=== PATIENT | male | born 1950 | race Caucasian/White ===

== ENCOUNTER 2023-07-31 06:50 | Day surgery (SDC) | payer MEDICARE, BC ==
[~2023-07-31 06:50] MED LIST: Lactated Ringers 1,000 ML IV SCH; Lactated Ringers 1,000 ML ONE; Midazolam 1 MG/ML 2 ML SDV ONE; Morphine 8 MG, EPINEPHrine 0.3 MG, Cefuroxime 750 MG, Ketorolac 30 MG, Sodium Chloride ... PRN; Propofol 200 MG/20 ML SDV ONE; Sodium Chloride 0.9% 10 ML Syringe FLUSH PRN; Sodium Chloride 0.9% 10 ML Syringe FLUSH SCH; Tranexamic Acid 1,000 MG/10 ML Vial ONE; Vancomycin 1 GM SDV ONE; ceFAZolin 2 GM Vial ONE; fentaNYL 100 MCG/2 ML SDV ONE
[2023-07-31] MEDS ORDERED: Tranexamic Acid 1,000 MG/10 ML Vial ONE (06:57)
[2023-07-31] MEDS ORDERED: oxyCODONE ER 10 MG TAB.ER PO SCH (07:00)
[2023-07-31] MEDS ORDERED: Acetaminophen 325 MG Tab PO SCH (07:00)
[2023-07-31] MEDS ORDERED: Pregabalin 25 MG Cap PO SCH (07:00)
[2023-07-31] MEDS ORDERED: Ropivacaine 0.5% 5 MG/ML 30 ML SDV ONE (07:06)
[2023-07-31] MEDS ORDERED: EPINEPHrine 1 MG/ML SDV ONE (07:06)
[2023-07-31] MEDS ORDERED: Dexmedetomidine 200 MCG/2 ML SDV ONE (07:06)
[2023-07-31] MEDS ORDERED: Ondansetron 4 MG/2 ML SDV IVPUSH PRN (08:29)
[2023-07-31] MEDS ORDERED: fentaNYL 100 MCG/2 ML SDV IVPUSH PRN (08:29)
[2023-07-31] MEDS ORDERED: HYDROmorphone 0.5 MG/0.5 ML Syringe IVPUSH PRN (08:29)
[2023-07-31] MEDS ORDERED: oxyCODONE 5 MG Tab PO SCH (10:16)
[2023-07-31] MEDS ORDERED: oxyCODONE 5 MG Tab PO ONE (12:35)
== END 2023-07-31 12:34 | disposition home or self-care (01) ==
LOC: JD.SDS 06:50
PROVIDERS: ATTEND Orthopaedic Surgery
DX: M17.11 Unilateral primary osteoarthritis, right knee (principal); R97.20 Elevated prostate specific antigen [PSA]; E66.9 Obesity, unspecified; I10 Essential (primary) hypertension; E11.9 Type 2 diabetes mellitus without complications; R35.1 Nocturia; N40.1 Benign prostatic hyperplasia with lower urinary tract symptoms; J45.909 Unspecified asthma, uncomplicated; Z79.84 Long term (current) use of oral hypoglycemic drugs; Z79.899 Other long term (current) drug therapy; Z79.82 Long term (current) use of aspirin; Z88.8 Allergy status to other drugs, medicaments and biological substances
CPT/HCPCS: 0055T; 27447; 64447; 73560; 82947; 97110; 97116; 97161; A9270; C1713; C1776; J0171; J0690; J0697; J1885; J2250; J2270; J2704; J2795; J3010; J3370; J7030; J7120; 01402; 99100; J3490